=== PATIENT | female | born 1980 | race Caucasian/White ===

== ENCOUNTER 2018-09-14 18:57 | Emergency (ER) | payer OTHER ==
[2018-09-14 19:11] VITALS: BMI 31.6
--- NOTE | 2018-09-14 19:12 | PDOC ---
Rapid Medical Evaluation Time Seen by Provider: 09/14/18 19:10 Medical Evaluation: 09/14/18 19:10 I have performed a brief in-person evaluation of this patient. The patient presents with a chief complaint of: 1 day of multiple episodes of NBNB vomiting and NB diarrhea (more than 10 episodes each), epigastric abdominal pain. Also c/o diffuse pounding headaches. (+)sick contacts, coworker vomiting. Pertinent physical exam findings: Pt looks uncomfortable from pain I have ordered the following: CBC, CMP, UCG, UA, lipase, reglan, benadry, pepcid , IV fluids The patient will proceed to the ED for further evaluation. Discharge Disposition - Diagnosis Abdominal pain Qualifiers: Abdominal location: epigastric Qualified Code(s): R10.13 - Epigastric pain - Referrals - Patient Instructions - Post Discharge Activity
[2018-09-14] MEDS ORDERED: FAMOTIDINE 20 MG/50 ML IVPB 20 MG/50 ML MG IVPB ONE (19:13)
[2018-09-14] MEDS ORDERED: METOCLOPRAMIDE HCL INJECTION 10 MG/2 ML VIAL IVPUSH ONE (19:13)
[2018-09-14] MEDS ORDERED: SODIUM CHLORIDE 1,000 ML IV STA (19:14)
--- NOTE | 2018-09-14 22:42 | PDOC ---
NIH Stroke Scale - Last Known Well Date/Time & Onset Date Last Known Well: 09/14/18 Time Last Known Well: 22:00 - Initial Evaluation Level of consciousness: Alert Ask patient the month and their age: Answers both correctly Ask patient to open & close eyes; make fist and let go: Obeys both correctly Best gaze (horizontal eye movement): Normal Visual field testing: No visual field loss Facial paresis (Show teeth/raise eyebrows/close eyes tight): Complete paralysis of one or both sides (Upper and lower face) Motor Function: Left Arm: Normal Motor Function: Right Arm: Normal (extends arm 90 (or 45) degrees for 10 seconds without drift Motor Function: Left Leg: Normal (extends leg 30 degrees for 5 seconds without drift) Motor Function: Right Leg: Untestable )Joint fused orlimb amputated), explain: Sensory(Use pinprick test arms,legs,trunk,face/side to side): Normal Best language (Describe picture, name items, read sentences): No Aphasia Dysarthria (read several words): Normal articulation Extinction and Inattention: No abnormality - Total Score NIH Stroke Scale Score: 3
[2018-09-14 23:22] VITALS: BP 123/86; PULSE 83; TEMP 97.1
[2018-09-15] MEDS ORDERED: METOCLOPRAMIDE HCL INJECTION 10 MG/2 ML VIAL ONE (00:01)
[2018-09-15] MEDS ORDERED: FAMOTIDINE 20 MG/50 ML IVPB 20 MG/50 ML MG IVPB ONE (00:01)
[2018-09-15 00:13] LABS: BASO % 0.5 % (0-2.0); EOS % 0.6 % (0-4.5); HEMATOCRIT 38.7 % (32.4-45.2); HEMOGLOBIN 12.9 GM/dL (10.7-15.3); LYMPH % 32.9 % (8-40); MCH 27.6 pg (25.7-33.7); MCHC 33.2 g/dl (32.0-36.0); MEAN CELL VOLUME 83.1 fl (80-96); MEAN PLT VOLUME 8.7 fl (7.5-11.1); MONO % 9.2 % (3.8-10.2); NEUT % 56.8 % (42.8-82.8); PLATELET COUNT 290 K/MM3 (134-434); RBC 4.66 M/mm3 (3.60-5.2); RDW 13.6 % (11.6-15.6); WHITE BLOOD COUNT 8.3 K/mm3 (4.0-10.0)
[2018-09-15 01:06] LABS: ALK PHOS 80 U/L (45-117); BILIRUBIN,TOTAL 0.4 mg/dL (0.2-1); BLOOD UREA NITROGEN 5.7 mg/dL (7-18); CALCIUM 9.2 mg/dL (8.5-10.1); CHLORIDE 106 mmol/L (98-107); CO2 28 mmol/L (21-32); CREATININE 0.9 mg/dL (0.55-1.3); GLUCOSE,RANDOM 89 mg/dL (74-106); LIPASE 113 U/L (73-393); MAGNESIUM 1.9 mg/dL (1.8-2.4); PHOSPHOROUS 3.1 mg/dL (2.5-4.9); POTASSIUM 3.9 mmol/L (3.5-5.1); SGOT/AST 18 U/L (15-37); SGPT/ALT 28 U/L (13-61); SODIUM 141 mmol/L (136-145); TOT PROT 7.2 g/dl (6.4-8.2)
[2018-09-15 01:09] LABS: ANION GAP 8 MMOL/L (8-16)
--- NOTE | 2018-09-15 01:13 | PDOC ---
Documentation entered by Nella Iglesias SCRIBE, acting as scribe for Melissa Anne MD. Melissa Anne MD: This documentation has been prepared by the Kelsie king Brenda, SCRIBE, under my direction and personally reviewed by me in its entirety. I confirm that the documentation accurately reflects all work, treatment, procedures, and medical decision making performed by me. History of Present Illness - General Chief Complaint: Vomiting/Diarrhea Stated Complaint: VOMITING/DIARRHEA Time Seen by Provider: 09/14/18 19:10 History Source: Patient Exam Limitations: No Limitations - History of Present Illness Initial Comments: 09/14/18 23:06 The patient is a 46 year old female, with a significant PMH of who presents to the emergency department with 10 episodes of non bloody emesis, some containing bile and 10 episodes of diarrhea starting today accompanied by nausea. As per patient, she ate some pork last night, which she feels might have triggered her symptoms. She also notes that her coworker has been experiencing the same symptoms since Monday. She also endorses right upper quadrant pain and mid epigastric pain. The patient denies chest pain, shortness of breath, headache and dizziness. Denies fever, chills and constipation. Denies any urinary symptoms. Allergies: NKA Surgical History: Cholystectomy and one . PCP: Akanksha Sofia Past History - Past Medical History Allergies/Adverse Reactions: Allergies Allergy/AdvReac Type Severity Reaction Status Date / Time No Known Allergies Allergy Verified 09/14/18 19:12 COPD: No - Suicide/Smoking/Psychosocial Hx Smoking History: Never smoked Review of Systems - Review of Systems Able to Perform ROS?: Yes Comments:: 09/14/18 23:06 GENERAL/CONSTITUTIONAL: No fever or chills. No weakness. HEAD, EYES, EARS, NOSE AND THROAT: No change in vision. No ear pain or discharge. No sore throat. CARDIOVASCULAR: No chest pain or shortness of breath. RESPIRATORY: No cough, wheezing, or hemoptysis. GASTROINTESTINAL: +Nausea. +Vomiting + Diarrhea +Abdominal pain. No constipation. GENITOURINARY: No dysuria, frequency, or change in urination. MUSCULOSKELETAL: No joint or muscle swelling or pain. No neck or back pain. SKIN: No rash NEUROLOGIC: No headache, vertigo, loss of consciousness, or change in strength/ sensation. ENDOCRINE: No increased thirst. No abnormal weight change. HEMATOLOGIC/LYMPHATIC: No anemia, easy bleeding, or history of blood clots. ALLERGIC/IMMUNOLOGIC: No hives or skin allergy. *Physical Exam - Vital Signs Last Vital Signs Temp Pulse Resp BP Pulse Ox 98.6 F 127 H 18 153/101 H 99 09/14/18 19:07 09/14/18 19:07 09/14/18 19:07 09/14/18 19:07 09/14/18 19:07 - Physical Exam Comments: 09/14/18 23:44 GENERAL: Awake, alert, and fully oriented, in no acute distress HEAD: No signs of trauma EYES: PERRLA, EOMI, sclera anicteric, conjunctiva clear ENT: Auricles normal inspection, hearing grossly normal, nares patent, oropharynx clear without exudates. Moist mucosa NECK: Normal ROM, supple, no lymphadenopathy, JVD, or masses LUNGS: Breath sounds equal, clear to auscultation bilaterally. No wheezes, and no crackles HEART: Regular rate and rhythm, normal S1 and S2, no murmurs, rubs or gallops ABDOMEN: +Minimal right upper quadrant tenderness. Soft, nontender, normoactive bowel sounds. No guarding, no rebound. No masses EXTREMITIES: Normal range of motion, no edema. No clubbing or cyanosis. No cords, erythema, or tenderness NEUROLOGICAL: Cranial nerves II through XII grossly intact. Normal speech, normal gait SKIN: Warm, Dry, normal turgor, no rashes or lesions noted. Heart Score/ECG Review - ECG Intrepretation Rhythm: Regular Rhythm - P and ND Delta Wave(s) Present: No WPW: No - QRS Poor R Wave Progression: No Q Wave Present: No - ST and T Early Repolarization: No Non Specific ST-T Wave changes: No Flattened T Waves: No Prolonged Q-T Interval: No - ECG Impressions Normal ECG: Yes Non-specific ST Elevation: No Ischemic Changes: No Bradycardia: No ED Treatment Course - LABORATORY CBC & Chemistry Diagram: 09/15/18 00:00 09/15/18 00:00 - ADDITIONAL ORDERS Additional order review: 09/15/18 00:00 RBC 4.66 MCV 83.1 MCHC 33.2 RDW 13.6 MPV 8.7 Neutrophils % 56.8 Lymphocytes % 32.9 Monocytes % 9.2 Eosinophils % 0.6 Basophils % 0.5 - RADIOLOGY Radiology Studies Ordered: Category Date Time Status BRAIN CTA (STROKE) [CT] Stat CT Scan 09/14/18 22:38 Ordered ABDOMEN US -LIMITED [US] Stat Ultrasound 09/14/18 22:20 Taken - Medications Given in the ED: ED Medications Discontinued Medications Generic Name Dose Route Start Last Admin Trade Name Ravi PRN Reason Stop Dose Admin Diphenhydramine HCl 25 mg 09/14/18 19:13 09/15/18 00:06 Benadryl Injection - IVPUSH 09/14/18 19:14 25 mg ONCE ONE Administration Famotidine/Sodium Chloride 20 mg in 50 mls @ 100 mls/hr 09/14/18 19:13 00:06 Pepcid 20 Mg Premixed Ivpb - IVPB 09/14/18 19:42 100 mls/hr ONCE ONE Administration Sodium Chloride 1,000 mls @ 1,000 mls/hr 09/14/18 19:14 09/14/18 23:41 Normal Saline - IV 09/14/18 20:13 1,000 mls/hr ASDIR STA Administration Metoclopramide HCl 10 mg 09/14/18 19:13 09/15/18 00:06 Reglan Injection - IVPUSH 09/14/18 19:14 10 mg ONCE ONE Administration Medical Decision Making - Medical Decision Making 09/15/18 01:02 Patient Name: IGOR HOROWITZ THIS IS A PRELIMINARY REPORT FROM [facility]CLAIMED [employer]ERTY OFFICER DATE OF SERVICE: 2018-09-14 23:46:13 IMAGES: 34 EXAM: ULTRASOUND ABDOMEN INCOMPLETE Cholecystectomy. Unremarkable liver, right kidney and visualized aorta and pancreas. Normal common duct diameter, 4 mm. *DC/Admit/Observation/Transfer Diagnosis at time of Disposition: Viral gastroenteritis Abdominal pain Qualifiers: Abdominal location: epigastric Qualified Code(s): R10.13 - Epigastric pain - Discharge Dispostion Disposition: HOME Condition at time of disposition: Improved Decision to Admit order: No - Referrals - Patient Instructions Printed Discharge Instructions: DI for Viral Gastroenteritis -- Adult Print Language: EMIRATI - Post Discharge Activity Forms/Work/School Notes: Back to Work
--- NOTE | 2018-09-16 10:40 | EKG ---
Test Reason : Blood Pressure : / mmHG Vent. Rate : 078 BPM Atrial Rate : 078 BPM P-R Int : 124 ms QRS Dur : 078 ms QT Int : 382 ms P-R-T Axes : 037 054 015 degrees QTc Int : 435 ms NORMAL SINUS RHYTHM NORMAL ECG NO PREVIOUS ECGS AVAILABLE Confirmed by JIM MURILLO MD ([id number]) on 09/16/2018 10:40:04 AM Referred By: Confirmed By:JIM MURILLO MD
== END 2018-09-15 01:23 | disposition home or self-care (01) ==
LOC: JER 18:57
PROC: 3E0337Z Introduction of Electrolytic and Water Balance Substance into Peripheral Vein, Percutaneous Approach (ICD-10-PCS; principal; 2018-09-14)
PROC: 3E033GC Introduction of Other Therapeutic Substance into Peripheral Vein, Percutaneous Approach (ICD-10-PCS; 2018-09-14)
PROC: 3E033GC Introduction of Other Therapeutic Substance into Peripheral Vein, Percutaneous Approach (ICD-10-PCS; 2018-09-14)
PROC: 3E033GC Introduction of Other Therapeutic Substance into Peripheral Vein, Percutaneous Approach (ICD-10-PCS; 2018-09-14)
DX: A08.4 Viral intestinal infection, unspecified (principal); B97.89 Other viral agents as the cause of diseases classified elsewhere
CPT/HCPCS: 36415; 76705-TC; 80053; 83690; 83735; 84100; 84702; 85025; 93005; 93010; 96361; 96365; 96375; 99283-25; J7030

== ENCOUNTER → 2021-05-13 | Day surgery (SDC) | payer OTHER | END | disposition home or self-care (01) | LOC: FMAMMOTONE 08:07 | PROVIDERS: ATTEND Obstetrics & Gynecology | PROC: 0HBT3ZX Excision of Right Breast, Percutaneous Approach, Diagnostic (ICD-10-PCS; principal; 2021-05-13) | DX: N60.11 Diffuse cystic mastopathy of right breast (principal); N60.81 Other benign mammary dysplasias of right breast; N64.89 Other specified disorders of breast; R92.1 Mammographic calcification found on diagnostic imaging of breast | CPT/HCPCS: 19081; 76098-TC-FY; 87899; 88305-TC; A4648 ==